=== PATIENT | female | born 1960 | race Caucasian/White ===

== ENCOUNTER 2021-10-30 17:21 | Observation (INO) ==
[2021-10-30 18:34] LABS: Basophils % 0.4 % (0.0-0.8); Eosinophils # 0.3 10*3/uL (0.0-0.87); Eosinophils % 3.7 % (0.00-10.9); Hematocrit 36.9 VOL% (35.7-47.0); Hemoglobin 12.4 GM/DL (12.0-16.0); Immature Granulocytes % 0.4 %; Immature Granulocytes Absolute 0.03 #; Lymphocytes # 2.9 10*3/uL (1.4-4.0); Mean Corpuscular HGB Conc 33.6 GM/DL (32-36); Mean Corpuscular Volume 87.9 FL (87-102); Mean Platelet Volume 8.9 FL (9.6-12.0); Monocytes # 0.6 10*3/uL (0.11-0.8); Monocytes % 8.4 % (1.7-12.7); Neutrophils % 47.1 % (38.7-73.9); Platelet Count 388 T/CUMM (130-400); Red Cell Distribution Width 13.2 % (9.3-17.3); White Blood Count 7.3 T/CUMM (4-12)
[2021-10-30 18:54] LABS: Alanine Aminotransferase 33 U/L (13-56); Albumin 3.8 G/DL (3.4-5.0); Alkaline Phosphatase 77 U/L (45-117); Aspartate Amino Transferase 23 U/L (0-37); Bilirubin,Total < 0.39 MG/DL (0.20-1.00); Blood Urea Nitrogen 11 MG/DL (7-18); Calcium 9.8 MG/DL (8.5-10.1); Carbon Dioxide 26 MMOL/L (21-32); Chloride 106 MMOL/L (98-107); Glucose 95 MG/DL (74-106); Osmolality,Calculated 277.4 MOS/KG (273-304); Potassium 3.1 MMOL/L (3.5-5.1); Sodium 140 MMOL/L (136-145); Total Protein 7.5 G/DL (6.4-8.2)
[2021-10-30] MEDS ORDERED: ONDANSETRON 4 MG/2 ML VIAL IV ONE (19:11)
[2021-10-30] MEDS ORDERED: SODIUM CHLORIDE 0.9% 1,000 ML IV STA (19:11)
[2021-10-30] MEDS ORDERED: MORPHINE 2 MG/1 ML SYRINGE IV STA (19:11)
[2021-10-30] MEDS ORDERED: ALBUTEROL/IPRATROPIUM 3 ML NEB RESP TX STA (19:16)
[2021-10-30] MEDS ORDERED: POTASSIUM CHLORIDE 20 MEQ TABLET PO STA (19:16)
[2021-10-30] MEDS ORDERED: DEXTROSE 10% 250 ML BAG IV PRN (19:17)
[2021-10-30] MEDS ORDERED: ONDANSETRON 4 MG/2 ML VIAL IV PRN (19:17)
[2021-10-30] MEDS ORDERED: diphenhydrAMINE CAP 25 MG CAPSULE PO PRN (19:17)
[2021-10-30] MEDS ORDERED: GLUCAGON 1 MG VIAL IM PRN (19:17)
[2021-10-30] MEDS ORDERED: guaiFENesin/DM ER 600-30 MG TABLET PO PRN (19:17)
[2021-10-30] MEDS ORDERED: ZALEPLON 5 MG CAPSULE PO PRN (19:17)
[2021-10-30] MEDS ORDERED: NICOTINE 21 MG/24 HR PATCH TRANSDERM PRN (19:17)
[2021-10-30] MEDS ORDERED: hydrALAZINE 20 MG/1 ML VIAL IV PRN (19:17)
[2021-10-30] MEDS: ALBUTEROL/IPRATROPIUM 3 ML NEB RESP TX SCH (19:52)
[2021-10-30 20:10] LABS: INR 0.9; PT Patient Result 10.3 SECS (10.5-12.0)
[2021-10-30] MEDS: MORPHINE 2 MG/1 ML SYRINGE IV PRN (20:49)
[2021-10-30] MEDS: HEPARIN 5,000 UNIT/1 ML VIAL SUBCUT SCH (20:49)
[2021-10-30] MEDS: SODIUM CHLORIDE 0.9% 1,000 ML IV SCH (20:49)
[2021-10-30] MEDS ORDERED: clonazePAM 0.5 MG TABLET PO PRN (23:44)
[2021-10-30] MEDS ORDERED: NITROGLYCERIN SL 0.4 MG TABLET SL PRN (23:44)
[2021-10-30] MEDS ORDERED: tiZANidine 4 MG TABLET PO PRN (23:44)
[2021-10-30] MEDS ORDERED: ROSUVASTATIN 20 MG TABLET PO SCH (23:45)
[2021-10-30] MEDS ORDERED: AMITRIPTYLINE 25 MG TABLET PO SCH (23:45)
[2021-10-31] MEDS: METOPROLOL TARTRATE 25 MG TABLET PO SCH ×2 (00:24→10:39)
[2021-10-31] MEDS: MORPHINE 2 MG/1 ML SYRINGE IV PRN ×2 (01:28→08:20)
[2021-10-31 07:18] LABS: Basophils % 0.3 % (0.0-0.8); Eosinophils # 0.3 10*3/uL (0.0-0.87); Eosinophils % 4.9 % (0.00-10.9); Hematocrit 34.8 VOL% (35.7-47.0); Hemoglobin 10.9 GM/DL (12.0-16.0); Immature Granulocytes % 0.2 %; Immature Granulocytes Absolute 0.01 #; Lymphocytes # 2.9 10*3/uL (1.4-4.0); Lymphocytes % 47.1 % (21.3-54.2); Mean Corpuscular HGB Conc 31.3 GM/DL (32-36); Mean Corpuscular Volume 93.3 FL (87-102); Monocytes # 0.5 10*3/uL (0.11-0.8); Monocytes % 7.8 % (1.7-12.7); Neutrophils % 39.7 % (38.7-73.9); Platelet Count 313 T/CUMM (130-400); Red Blood Count 3.73 MC/CUMM (3.8-5.5); Red Cell Distribution Width 13.2 % (9.3-17.3); White Blood Count 6.2 T/CUMM (4-12)
[2021-10-31 07:42] LABS: Albumin 3.2 G/DL (3.4-5.0); Bilirubin,Total 0.4 MG/DL (0.20-1.00); Calcium 8.9 MG/DL (8.5-10.1); Osmolality,Calculated 284.8 MOS/KG (273-304); Potassium 4.3 MMOL/L (3.5-5.1); Risk Ratio 2.58; Total Protein 6.6 G/DL (6.4-8.2)
[2021-10-31] MEDS: ALBUTEROL/IPRATROPIUM 3 ML NEB RESP TX SCH ×2 (08:01→15:03)
[2021-10-31] MEDS ORDERED: ASPIRIN CHEW 81 MG TABLET PO SCH (09:00)
[2021-10-31] MEDS ORDERED: ISOSORBIDE MONONITRATE 30 MG TABLET PO SCH (09:00)
[2021-10-31] MEDS ORDERED: CLOPIDOGREL 75 MG TABLET PO SCH (09:00)
[2021-10-31] MEDS ORDERED: BISACODYL 5 MG TABLET PO SCH (09:00)
[2021-10-31] MEDS ORDERED: EZETIMIBE 10 MG TABLET PO SCH (09:00)
[2021-10-31] MEDS ORDERED: PANTOPRAZOLE 40 MG TABLET PO SCH ×2 (09:00)
[2021-10-31] MEDS: HEPARIN 5,000 UNIT/1 ML VIAL SUBCUT SCH (10:40)
[2021-10-31] MEDS: SODIUM CHLORIDE 0.9% 1,000 ML IV SCH (17:23)
[2021-10-31 17:43] VITALS: BP 94/55
== END 2021-10-31 17:55 | disposition left against medical advice (07) ==
LOC: N.ED 17:21 → N.EDINP 17:21 → SUATTDRO 19:17 → N.TELES 21:00
PROVIDERS: ADMIT Internal Medicine; ATTEND Internal Medicine